=== PATIENT | female | born 1975 | race Caucasian/White ===

== ENCOUNTER → 2017-03-25 | Outpatient (CLI) | payer OTHER | LOC: FIMAGING 11:28 | PROVIDERS: ATTEND Family Medicine | DX: Z12.31 Encounter for screening mammogram for malignant neoplasm of breast (principal); Z80.3 Family history of malignant neoplasm of breast | CPT/HCPCS: G0202 ==

== ENCOUNTER 2018-03-30 09:56 | Emergency (ER) | payer OTHER ==
--- NOTE | 2018-03-30 10:44 | EDPHY ---
H & P Stated Complaint: knee sx 03/25, calf/knee pain starting last night Time Seen by Provider: 03/30/18 10:10 HPI/ROS: Chief Complaint: Calf pain and swelling HPI: 43-year-old woman who is 5 days status post left knee surgery is presenting with left calf pain and swelling which began at 8:00 a.m. Last night. Patient states she has not required any pain medication after surgery but did have to take an oxycodone to sleep. She spoke with her orthopedist who instructed her to present for evaluation. Denies any swelling. No chest pain or shortness of breath. No palpitations. Also having some knee pain which is worse than her postop pain. No redness. No discharge. No fevers or chills. ROS: 10 systems were reviewed and were negative except those elements noted in the HPI. Social History: No smoking, occasional alcohol, no recreational drug use Family History: non-contributory Physical Exam: Gen: Awake, Alert, No Distress HEENT: Nose: no rhinorrhea Eyes: PERRLA, EOMI Mouth: Moist mucosa Neck: Supple, no JVD Chest: nontender, lungs clear to auscultation Heart: S1, S2 normal, no murmur Abd: Soft, non-tender, no guarding Back: no CVA tenderness, no midline tenderness Ext: no edema, dressings in place over the left knee. There is no erythema. There is no dehiscence. Is not warm to touch. She is able to flex and extend without any difficulty. Left calf is not swollen or tender. There is no erythema. Skin: no rash Neuro: CN II-XII intact, Sensation grossly intact, Strength 5/5 in bilateral upper and lower extremities - Medical/Surgical History Hx Asthma: No Hx Chronic Respiratory Disease: No Hx Diabetes: No Hx Cardiac Disease: No Hx Renal Disease: No Hx Cirrhosis: No Hx Alcoholism: No Hx HIV/AIDS: No Hx Splenectomy or Spleen Trauma: No Other PMH: knee sx, bundle branch block, hypotension - Social History Smoking Status: Never smoked Constitutional: Initial Vital Signs Temperature (C) 36.7 C 03/30/18 10:01 Heart Rate 68 03/30/18 10:01 Respiratory Rate 18 03/30/18 10:01 Blood Pressure 108/61 03/30/18 10:01 O2 Sat (%) 99 03/30/18 10:01 O2 Delivery Mode Room Air Allergies/Adverse Reactions: amoxicillin [Amoxicillin] Allergy (Verified 03/30/18 10:01) Latex, Natural Rubber Allergy (Verified 03/30/18 10:01) Home Medications: Medication Instructions Recorded NK [No Known Home Meds] 03/29/16 Medical Decision Making - Diagnostics Imaging Results: Imaging Impressions Extremity Venous Study 03/30/18 10:18 Impression: There is no sonographic evidence of deep or superficial vein thrombosis in the left lower extremity. Findings were conveyed via a secure text to Lincoln Norman MD at 11:18 AM, on 03/30/2018. Imaging: Discussed imaging studies w/ order desk caller Radiologist ED Course/Re-evaluation: Left lower extremity is negative for DVT. Symptoms consistent with postoperative changes. Will discharge with follow-up with Orthopedics. Departure - Departure Disposition: Home, Routine, Self-Care Clinical Impression: Leg pain Condition: Good Instructions: Leg Pain (ED) Additional Instructions: Follow up with her orthopedist in 2-3 days for further evaluation. Return to the emergency department for increasing leg pain, redness, worsening swelling, fevers, or any other concerns. Referrals: Albina Raines MD [Primary Care Provider] - As per Instructions
[2018-03-30 11:50] VITALS: BP 121/68
== END 2018-03-30 11:50 | disposition home or self-care (01) ==
DX: M79.662 Pain in left lower leg (principal); R22.42 Localized swelling, mass and lump, left lower limb

== ENCOUNTER → 2018-04-04 | Outpatient (CLI) | payer OTHER | LOC: FIMAGING 18:05 | PROVIDERS: ATTEND Orthopaedic Surgery Sports Medicine | DX: M79.662 Pain in left lower leg (principal); M79.89 Other specified soft tissue disorders; M71.22 Synovial cyst of popliteal space [Baker], left knee ==